=== PATIENT | female | born 1975 | race African-American/Black ===

== ENCOUNTER 2024-12-14 07:09 | Emergency (ER) | payer OTHER, MEDICAID ==
[~2024-12-14] VITALS: Ht 167.6 cm; Wt 77.3 kg
[2024-12-14 07:16] VITALS: BP 135/85; PULSE 79; RESP 18; TEMP 98.7; O2SAT 100
[2024-12-14 08:41] LABS: GLUCOMETER DEV NAME(LOC) ER.7; GLUCOSE,POINT OF CARE 260 MG/DL (70-110)
[2024-12-14] MEDS: HYDROCODONE/ACETAMINOPHEN 5-325 MG TABLET PO ONE (08:45)
[2024-12-14 08:51] LABS: PLATELET COUNT (AUTO) 280 K/uL (150-450); RED BLOOD CELL COUNT(AUTO) 3.79 MIL/uL (4.00-5.20); RED CELL DISTRIBUTION WIDTH 14.5 % (11.5-14.5); WHITE BLOOD COUNT (AUTO) 3.9 K/uL (4.5-11.0)
[2024-12-14 08:57] LABS: CALCIUM, TOTAL 9.6 mg/dL (8.8-10.5); CREATININE 1.57 mg/dL (0.60-1.30); GLOMERULAR FILTR. RATE CALC 42 mL/min (>60); GLUCOSE,RANDOM 319 mg/dL (70-110); SODIUM SERUM 138 mmol/L (136-145); UREA NITROGEN, BLOOD 35 mg/dL (7-18)
[2024-12-14 09:06] LABS: TROPONIN I-HIGH SENSITIVITY 7 ng/L (<51)
[2024-12-14] MEDS ORDERED: VALA500T42 PO (10:13)
[2024-12-14] MEDS ORDERED: POLY119P3 PO (10:13)
[2024-12-14] MEDS ORDERED: ATOR40TA28 PO (10:13)
[2024-12-14] MEDS ORDERED: CLOP75TA83 PO (10:13)
[2024-12-14] MEDS ORDERED: SITA25 PO (10:13)
[2024-12-14] MEDS ORDERED: METF-1211 PO (10:13)
[2024-12-14] MEDS ORDERED: HYDR-4062 PO (10:13)
[2024-12-14] MEDS ORDERED: ASPI-1227 PO (10:13)
[2024-12-14] MEDS ORDERED: CARV12 PO (10:13)
== END 2024-12-14 10:33 | disposition home or self-care (01) ==
LOC: EMS 07:15
DX: B02.9 Zoster without complications (principal); R41.82 Altered mental status, unspecified; E11.22 Type 2 diabetes mellitus with diabetic chronic kidney disease; E11.65 Type 2 diabetes mellitus with hyperglycemia; I12.9 Hypertensive chronic kidney disease with stage 1 through stage 4 chronic kidney disease, or unspecified chronic kidney disease; I69.30 Unspecified sequelae of cerebral infarction; N18.9 Chronic kidney disease, unspecified; Z79.82 Long term (current) use of aspirin; Z98.890 Other specified postprocedural states
CPT/HCPCS: 80048; 82962; 83690; 84484; 85025; 99283

== ENCOUNTER 2024-12-18 13:31 | Inpatient (IN) | payer OTHER, MEDICAID ==
[~2024-12-18] VITALS: Ht 170.2 cm; Wt 65.9 kg
[~2024-12-18 13:31] MED LIST: ASPI-1227 PO; ATOR40TA28 PO; CARV12 PO; CLOP75TA83 PO; HYDR-4062 PO; METF-1211 PO; POLY119P3 PO; SITA25 PO; VALA500T42 PO
[2024-12-18 14:38] LABS: PLATELET COUNT (AUTO) 280 K/uL (150-450); RED BLOOD CELL COUNT(AUTO) 3.97 MIL/uL (4.00-5.20); RED CELL DISTRIBUTION WIDTH 14.2 % (11.5-14.5); WHITE BLOOD COUNT (AUTO) 4.3 K/uL (4.5-11.0)
[2024-12-18 14:46] LABS: CALCIUM, TOTAL 10.0 mg/dL (8.8-10.5); CREATININE 1.65 mg/dL (0.60-1.30); GLOMERULAR FILTR. RATE CALC 40 mL/min (>60); GLUCOSE,RANDOM 287 mg/dL (70-110); SODIUM SERUM 138 mmol/L (136-145); UREA NITROGEN, BLOOD 26 mg/dL (7-18)
[2024-12-18 14:52] LABS: ASPARTATE AMINOTRANSFERASE 16.0 U/L (15-37); TOTAL PROTEIN, SERUM 8.0 g/dL (6.4-8.2)
[2024-12-18 14:57] LABS: TROPONIN I-HIGH SENSITIVITY 10 ng/L (<51)
[2024-12-18 15:26] LABS: CREATINE KINASE, TOTAL ONLY 49 U/L (26-192)
[2024-12-18] MEDS ORDERED: DEXTROSE 50%-WATER 25 GM/50 ML SYRINGE IVP PRN (15:30)
[2024-12-18] MEDS ORDERED: ACETAMINOPHEN 325 MG TABLET PO PRN (15:30)
[2024-12-18] MEDS ORDERED: ONDANSETRON HCL 4 MG/2 ML VIAL IVP PRN (15:30)
[2024-12-18] MEDS: SODIUM CHLORIDE 0.9% 1,000 ML IV ONE (15:44)
[2024-12-18] MEDS: HEPARIN SODIUM,PORCINE 5,000 UNITS/ML VIAL SQ SCH (16:41)
[2024-12-18 17:36] LABS: COVID AG,FIA SOURCE NASAL SWAB
[2024-12-18 17:40] LABS: APPEARANCE,URINE CLEAR (CLEAR); GLUCOSE, URINE (UA) >=1000 mg/dL (NEGATIVE); LEUKOCYTE ESTERASE ,URINE NEGATIVE (NEGATIVE); NITRATE,URINE NEGATIVE (NEGATIVE); OCCULT BLOOD,URINE NEGATIVE (NEGATIVE); SPECIFIC GRAVITIY, URINE 1.015 (1.003-1.030)
[2024-12-18 18:00] LABS: INFLUENZA TYPE A NEGATIVE FOR TYPE A (NEGATIVE); INFLUENZA TYPE B NEGATIVE FOR TYPE B (NEGATIVE); SARS-COV2 (COVID) ANTIGEN,FIA Negative (Negative)
[2024-12-18 18:34] LABS: SQUAMOUS EPITHELIAL CELL,UR Few /LPF (None Seen)
[2024-12-18] MEDS: DOCUSATE SODIUM 100 MG CAPSULE PO SCH (21:12)
[2024-12-18 22:36] VITALS: BP 189/99; PULSE 118; RESP 18; TEMP 98.4; O2SAT 100
[2024-12-19 03:32] VITALS: BP 180/100; PULSE 97; RESP 20; O2SAT 100
[2024-12-19 05:51] VITALS: BP 148/104; PULSE 96; RESP 20; O2SAT 100
[2024-12-19 06:11] LABS: GLUCOMETER DEV NAME(LOC) 4E.2; GLUCOSE,POINT OF CARE 230 MG/DL (70-110)
[2024-12-19] MEDS: INSULIN LISPRO 100 UNITS/ML SQ PRN (06:22)
[2024-12-19] MEDS: ATORVASTATIN CALCIUM 40 MG TABLET PO SCH (08:36)
[2024-12-19] MEDS: FAMOTIDINE 20 MG TABLET PO SCH (08:36)
[2024-12-19] MEDS: CLOPIDOGREL BISULFATE 75 MG TABLET PO SCH (08:36)
[2024-12-19] MEDS: ASPIRIN 81 MG CHEWABLE TABLET PO SCH (08:37)
[2024-12-19 11:21] VITALS: BP 109/73; PULSE 65; RESP 17; TEMP 97.5; O2SAT 100
[2024-12-19 13:56] LABS: GLUCOMETER DEV NAME(LOC) 4E.2; GLUCOSE,POINT OF CARE 141 MG/DL (70-110)
[2024-12-19 15:01] LABS: CALCIUM, TOTAL 9.9 mg/dL (8.8-10.5); CREATININE 1.2 mg/dL (0.60-1.30); GLOMERULAR FILTR. RATE CALC 58.0 mL/min (>60); GLUCOSE,RANDOM 152.0 mg/dL (70-110); SODIUM SERUM 138.0 mmol/L (136-145); UREA NITROGEN, BLOOD 27.0 mg/dL (7-18)
[2024-12-19 20:12] VITALS: BP 158/94; PULSE 76; RESP 18; TEMP 97.5; O2SAT 96
[2024-12-19 20:55] LABS: GLUCOMETER DEV NAME(LOC) 4E.2; GLUCOSE,POINT OF CARE 252 MG/DL (70-110)
[2024-12-19 20:55] LABS: GLUCOMETER DEV NAME(LOC) 4E.2; GLUCOSE,POINT OF CARE 123 MG/DL (70-110)
[2024-12-20 05:17] VITALS: BP 159/101; PULSE 81; RESP 18; TEMP 98; O2SAT 100
[2024-12-20 09:17] VITALS: BP 138/89; PULSE 75; RESP 18; TEMP 97.8; O2SAT 100
[2024-12-20 16:00] VITALS: BP 142/87; PULSE 85; RESP 18; TEMP 98; O2SAT 100
[2024-12-20 20:24] VITALS: BP 144/90; PULSE 71; RESP 18; TEMP 97.9; O2SAT 100
[2024-12-21 01:01] LABS: GLUCOMETER DEV NAME(LOC) 4E.2; GLUCOSE,POINT OF CARE 169 MG/DL (70-110)
[2024-12-21 01:01] LABS: GLUCOMETER DEV NAME(LOC) 4E.2; GLUCOSE,POINT OF CARE 196 MG/DL (70-110)
[2024-12-21 01:01] LABS: GLUCOMETER DEV NAME(LOC) 4E.2; GLUCOSE,POINT OF CARE 197 MG/DL (70-110)
[2024-12-21 01:01] LABS: GLUCOMETER DEV NAME(LOC) 4E.2; GLUCOSE,POINT OF CARE 205 MG/DL (70-110)
[2024-12-21 04:00] VITALS: BP 169/89; PULSE 75; RESP 16; TEMP 97.7; O2SAT 100
[2024-12-21 08:38] LABS: PLATELET COUNT (AUTO) 284 K/uL (150-450); RED BLOOD CELL COUNT(AUTO) 3.91 MIL/uL (4.00-5.20); RED CELL DISTRIBUTION WIDTH 14.4 % (11.5-14.5); WHITE BLOOD COUNT (AUTO) 2.9 K/uL (4.5-11.0)
[2024-12-21 08:48] LABS: CALCIUM, TOTAL 9.5 mg/dL (8.8-10.5); CREATININE 1.39 mg/dL (0.60-1.30); GLOMERULAR FILTR. RATE CALC 49.0 mL/min (>60); GLUCOSE,RANDOM 154.0 mg/dL (70-110); SODIUM SERUM 138.0 mmol/L (136-145); UREA NITROGEN, BLOOD 31.0 mg/dL (7-18)
[2024-12-21 08:51] VITALS: BP 145/100; PULSE 67; RESP 18; TEMP 98.3; O2SAT 100
[2024-12-21 10:06] LABS: GLUCOMETER DEV NAME(LOC) 4E.2; GLUCOSE,POINT OF CARE 179 MG/DL (70-110)
[2024-12-21] MEDS ORDERED: DOCU-385 PO (15:52)
[2024-12-21] MEDS ORDERED: FAMO20 PO (15:53)
[2024-12-21] MEDS ORDERED: HEPA50009 SQ (15:53)
[2024-12-21] MEDS ORDERED: ACET-2247 PO (15:55)
[2024-12-21] MEDS ORDERED: CLON0.1T2 PO (15:56)
[2024-12-21] MEDS ORDERED: INSU100V SQ (15:57)
[2024-12-21 17:45] LABS: GLUCOMETER DEV NAME(LOC) 4E.2; GLUCOSE,POINT OF CARE 180 MG/DL (70-110)
[2024-12-21 17:50] LABS: GLUCOMETER DEV NAME(LOC) 6S.2; GLUCOSE,POINT OF CARE 203 MG/DL (70-110)
== END 2024-12-21 21:01 | DRG 683 ==
LOC: EMS 13:31 → EDH 15:27 → 6S 22:05
PROVIDERS: ADMIT Internal Medicine; ATTEND Internal Medicine
DX: N17.9 Acute kidney failure, unspecified (principal); I69.351 Hemiplegia and hemiparesis following cerebral infarction affecting right dominant side; E11.65 Type 2 diabetes mellitus with hyperglycemia; E78.00 Pure hypercholesterolemia, unspecified; Z20.822 Contact with and (suspected) exposure to COVID-19; I10 Essential (primary) hypertension; Z83.3 Family history of diabetes mellitus; Z79.899 Other long term (current) drug therapy; Z79.82 Long term (current) use of aspirin
CPT/HCPCS: 71045; 80048; 80076; 81001; 82550; 82962; 83880; 84484; 85025; 87086; 87804; 92526; 92610; 93005; 97116; 97163; 97166; 97530; 97535; 99285; J0360; J1644; 36415-L1; 36415-TC